=== PATIENT | male | born 1975 | race Caucasian/White ===

== ENCOUNTER 2019-07-10 07:49 | Emergency (ER) | payer OTHER ==
[~2019-07-10] VITALS: Ht 175.3 cm; Wt 64.9 kg
[~2019-07-10 07:49] MED LIST: ACETAMINOPHEN-1 EAC1 PO; ACETAMINOPHEN325 M1 PO; AMOXICILLIN500 M1 PO; AUGMENTIN 875875 M1 PO; AUGMENTIN 875875 MG PO; CARISOPRODOL 3350 MG; DESYREL300 MG PO; DIAZEPAM 10 MG10 M2 PO; DIAZEPAM PO; DOCUSATE SODIU100 MG PO; FLONASE 0.05%50 MCG NASAL; FOLIC ACID1 MG PO; HYDROCODON-ACE1 EAC7 PO; IBUPROFEN 200200 M1 PO; KEPPRA 500 MG500 M1 PO; KEPPRA 500 MG500 MG PO; LEVAQUIN 500 M500 MG PO; MIRTAZAPINE15 M1 PO; MULTI-VITAMIN1 EAC5 PO; NICOTINE TRANSD21 M1 TD; NORCO 5-325 TA1 EACH PO; PENICILLIN VK500 M1 PO; PREDNISONE 20 M20 M1 PO; PROMETHAZINE-D120 ML PO; ROBAXIN500 MG PO; SEROQUEL 50 MG50 MG PO; SEROQUEL XR 20200 MG PO; SEROQUEL200 MG PO; THERA M PLUS T1 EAC2 PO; THERAGRAN-M AD1 EACH PO; TRAZODONE 150150 M1 PO; TUMS PO; VITAMIN B 1 PO; VITAMIN B-1100 M1 PO; VITAMIN D2 PO; VITAMIN D250000 UNIT PO; WELLBUTRIN SR150 MG PO; XANAX XR1 MG PO; ZANAFLEX4 M1 PO
[2019-07-10 08:40] LABS: INFLUENZA A ANTIGEN Negative (Negative); INFLUENZA B ANTIGEN Negative (Negative)
[2019-07-10 09:09] VITALS: BP 124/83
== END 2019-07-10 09:10 | disposition home or self-care (01) ==
LOC: M.ERS 07:49
PROVIDERS: Emergency Medicine Emergency Medical Services
DX: J06.9 Acute upper respiratory infection, unspecified (principal); F41.9 Anxiety disorder, unspecified; I10 Essential (primary) hypertension; F17.210 Nicotine dependence, cigarettes, uncomplicated; Z88.6 Allergy status to analgesic agent; Z88.1 Allergy status to other antibiotic agents; Z88.8 Allergy status to other drugs, medicaments and biological substances

== ENCOUNTER 2019-12-06 11:38 | Emergency (ER) | payer OTHER ==
[~2019-12-06] VITALS: Ht 177.8 cm; Wt 73.9 kg
[2019-12-06 12:16] LABS: INFLUENZA A ANTIGEN Negative (Negative); INFLUENZA B ANTIGEN Negative (Negative)
[2019-12-06 12:55] VITALS: BP 120/70
== END 2019-12-06 12:55 | disposition home or self-care (01) ==
LOC: M.ERS 11:38
PROVIDERS: Physician Assistant
DX: R51 Headache (principal); I10 Essential (primary) hypertension; F17.210 Nicotine dependence, cigarettes, uncomplicated; Z88.6 Allergy status to analgesic agent; Z88.8 Allergy status to other drugs, medicaments and biological substances

== ENCOUNTER 2020-06-08 13:14 | Emergency (ER) | payer OTHER ==
[~2020-06-08] VITALS: Ht 177.8 cm; Wt 71.2 kg
[2020-06-08 14:12] VITALS: BP 128/87
== END 2020-06-08 14:13 | disposition home or self-care (01) ==
LOC: M.ERS 13:14
DX: R09.81 Nasal congestion (principal); Z20.828 Contact with and (suspected) exposure to other viral communicable diseases; I10 Essential (primary) hypertension; F17.210 Nicotine dependence, cigarettes, uncomplicated; Z88.6 Allergy status to analgesic agent; Z88.8 Allergy status to other drugs, medicaments and biological substances

== ENCOUNTER 2020-07-08 15:10 | Emergency (ER) | payer OTHER ==
[~2020-07-08] VITALS: Ht 175.3 cm; Wt 74.8 kg
[2020-07-08] MEDS ORDERED: PREDNISONE 10 M10 MG PO (16:55)
[2020-07-08] MEDS ORDERED: TRIAMCINOLONE A15 G1 TOP (16:55)
[2020-07-08] MEDS ORDERED: APAP W/CODEINE1 TA2 PO (16:55)
[2020-07-08 17:16] VITALS: BP 129/85
== END 2020-07-08 17:16 | disposition home or self-care (01) ==
LOC: M.ERS 15:10
DX: L25.9 Unspecified contact dermatitis, unspecified cause (principal); I10 Essential (primary) hypertension; F17.210 Nicotine dependence, cigarettes, uncomplicated; Z88.6 Allergy status to analgesic agent; Z88.8 Allergy status to other drugs, medicaments and biological substances

== ENCOUNTER 2020-08-13 12:33 | Emergency (ER) | payer OTHER ==
[~2020-08-13] VITALS: Ht 175.3 cm; Wt 70.3 kg
[~2020-08-13 12:33] MED LIST changes: +APAP W/CODEINE1 TA2 PO; +PREDNISONE 10 M10 MG PO; +TRIAMCINOLONE A15 G1 TOP
[2020-08-13 12:41] VITALS: BP 137/91
== END 2020-08-13 13:31 | disposition home or self-care (01) ==
LOC: M.ERS 12:33
DX: J06.9 Acute upper respiratory infection, unspecified (principal); Z20.828 Contact with and (suspected) exposure to other viral communicable diseases; I10 Essential (primary) hypertension; F12.90 Cannabis use, unspecified, uncomplicated; F17.210 Nicotine dependence, cigarettes, uncomplicated; Z88.6 Allergy status to analgesic agent; Z88.1 Allergy status to other antibiotic agents; Z88.8 Allergy status to other drugs, medicaments and biological substances

== ENCOUNTER 2021-04-16 10:59 | Emergency (ER) | payer OTHER ==
[~2021-04-16] VITALS: Ht 177.8 cm; Wt 70.3 kg
[2021-04-16 11:08] VITALS: BP 129/90
[2021-04-16] MEDS ORDERED: MEDROLDOSEPACK PO (11:48)
[2021-04-16] MEDS ORDERED: PREDNISONE 20 M20 M1 PO (12:09)
== END 2021-04-16 12:25 | disposition home or self-care (01) ==
LOC: M.ERS 10:59
DX: J40 Bronchitis, not specified as acute or chronic (principal); Z20.822 Contact with and (suspected) exposure to COVID-19; F17.210 Nicotine dependence, cigarettes, uncomplicated; I10 Essential (primary) hypertension; Z88.6 Allergy status to analgesic agent; Z88.8 Allergy status to other drugs, medicaments and biological substances

== ENCOUNTER 2021-05-13 09:57 | Emergency (ER) | payer OTHER ==
[~2021-05-13] VITALS: Ht 177.8 cm; Wt 69.0 kg
[~2021-05-13 09:57] MED LIST changes: +MEDROLDOSEPACK PO
[2021-05-13] MEDS ORDERED: FLEXERIL PO (10:58)
[2021-05-13] MEDS ORDERED: MEDROLDOSEPACK PO (10:58)
[2021-05-13 11:05] VITALS: BP 130/58
== END 2021-05-13 11:05 | disposition home or self-care (01) ==
LOC: M.ERS 09:57
DX: S29.012A Strain of muscle and tendon of back wall of thorax, initial encounter (principal); Z20.822 Contact with and (suspected) exposure to COVID-19; M25.511 Pain in right shoulder; F41.9 Anxiety disorder, unspecified; I10 Essential (primary) hypertension; F17.210 Nicotine dependence, cigarettes, uncomplicated; Z88.6 Allergy status to analgesic agent; Z88.5 Allergy status to narcotic agent; Z88.8 Allergy status to other drugs, medicaments and biological substances; X50.0XXA Overexertion from strenuous movement or load, initial encounter; Y93.89 Activity, other specified; Y92.89 Other specified places as the place of occurrence of the external cause; Y99.8 Other external cause status

== ENCOUNTER 2021-08-17 14:49 | Emergency (ER) | payer OTHER ==
[~2021-08-17] VITALS: Ht 177.8 cm; Wt 70.3 kg
[~2021-08-17 14:49] MED LIST changes: +FLEXERIL PO
[2021-08-17 15:59] LABS: INFLUENZA A ANTIGEN Negative (Negative); INFLUENZA B ANTIGEN Negative (Negative)
[2021-08-17] MEDS ORDERED: PROMETHAZI6.25 MG/5 PO (16:08)
[2021-08-17] MEDS ORDERED: AMOXIL 875 MG875 M1 PO (16:08)
[2021-08-17] MEDS ORDERED: MEDROLDOSEPACK PO (16:08)
[2021-08-17 17:07] VITALS: BP 191/89
== END 2021-08-17 17:07 | disposition home or self-care (01) ==
LOC: M.ERS 14:49
PROVIDERS: Physician Assistant
DX: J18.9 Pneumonia, unspecified organism (principal); Z20.822 Contact with and (suspected) exposure to COVID-19; F41.9 Anxiety disorder, unspecified; I10 Essential (primary) hypertension; F17.210 Nicotine dependence, cigarettes, uncomplicated; Z88.6 Allergy status to analgesic agent; Z88.5 Allergy status to narcotic agent; Z88.8 Allergy status to other drugs, medicaments and biological substances